=== PATIENT | female | born 1950 | race Caucasian/White ===

== ENCOUNTER 2020-05-21 19:42 | Emergency (ER) | payer OTHER ==
[~2020-05-21] VITALS: Ht 160 cm; Wt 90.7 kg
[2020-05-21] MEDS ORDERED: TRAMADOL 50 MG50 MG PO (21:22)
[2020-05-21 21:33] VITALS: BP 127/66
== END 2020-05-21 21:34 | disposition home or self-care (01) ==
LOC: ER 19:42
DX: S20.212A Contusion of left front wall of thorax, initial encounter (principal); W17.89XA Other fall from one level to another, initial encounter; Y93.89 Activity, other specified; Y92.89 Other specified places as the place of occurrence of the external cause; Y99.8 Other external cause status